=== PATIENT | male | born 2005 | race Two or more races ===

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

== ENCOUNTER 2025-01-30 11:07 | Emergency (ER) | payer OTHER ==
[~2025-01-30] VITALS: Ht 177.8 cm; Wt 87.1 kg
[2025-01-30 13:30] VITALS: BP 140/80; O2SAT 100
[2025-01-30] MEDS ORDERED: KETOROLAC TROMETHAMINE 60 MG VIAL IM STA (13:53)
[2025-01-30] MEDS ORDERED: HYDROCODONE/CHLORPHEN P-STIREX 5 ML ML PO STA (13:54)
[2025-01-30 14:23] LABS: BASO % 0.5 % (0.1-1.2); EOS # 0.24 (0.04-0.54); EOS % 2.0 % (0.7-7.0); LYMPH # 2.42 (1.18-3.74); LYMPH % 19.9 % (19.3-53.1); MEAN PLATELET VOLUME 9.10 fl (9.4-12.4); MONO # 1.02 (0.24-0.82); MONO % 8.4 % (4.7-12.5); NEUT # 8.37 (1.56-6.13); NEUT % 68.8 % (34.0-71.1); RED CELL DISTRIBUTION WIDTH 13.2 % (11.6-14.4)
[2025-01-30 15:21] LABS: COVID-19 AG NEGATIVE (NEGATIVE)
== END 2025-01-30 15:19 | disposition home or self-care (01) ==
LOC: ER 11:40
DX: J06.9 Acute upper respiratory infection, unspecified (principal); Z20.822 Contact with and (suspected) exposure to COVID-19